=== PATIENT | male | born 1960 | race Caucasian/White ===

== ENCOUNTER 2016-07-31 21:23 | Emergency (ER) | payer SELFPAY ==
[2016-07-31 21:24] VITALS: BMI 25.3
[2016-07-31 21:39] VITALS: TEMP 98.1
--- NOTE | 2016-07-31 21:55 | C.PDOC ---
History Of Present Illness 55 y/o male presents to the ED with complains of facial injury. Pt admits to heavy alcohol intake tonight. Pt denies LOC, vomiting, headache, chest pain, SOB or any other complaints. Chief Complaint (Nursing): Trauma History Per: Patient Onset/Duration Of Symptoms: Hrs Current Symptoms Are (Timing): Still Present Suicide/Self Injury Attempted (Context): None Modifying Factor(s): Alcohol Severity: Mild Involuntary Hold By: None Recent travel outside of the [place]: No Past Medical History Reviewed: Historical Data, Nursing Documentation, Vital Signs Vital Signs: Last Vital Signs Temp 98.1 F 07/31/16 21:32 Pulse 91 H 08/01/16 00:30 Resp 18 08/01/16 00:30 BP 155/86 H 08/01/16 00:30 Pulse Ox 95 08/01/16 00:30 - Medical History PMH: Arthritis (gouty arthritis), Depression, HTN - [facility] Procedures ALCOHOL DETOXIFICATION (06/12/14) Family History: States: Unknown Family Hx - Social History Hx Tobacco Use: No Hx Alcohol Use: Yes Hx Substance Use: No - Immunization History Hx Tetanus Toxoid Vaccination: No Hx Influenza Vaccination: No Hx Pneumococcal Vaccination: No Review Of Systems Cardiovascular: Negative for: Chest Pain Respiratory: Negative for: Shortness of Breath Gastrointestinal: Negative for: Vomiting Musculoskeletal: Positive for: Other (facial injury) Neurological: Negative for: Headache Physical Exam - Physical Exam Appears: Non-toxic, No Acute Distress Skin: Warm, Dry, No Rash Head: Normacephalic, Swelling (slight swelling to right frontal/cheek area with mild tenderness), No Laceration, Other (no deformity) Nose: Normal Neck: Normal ROM, Supple Chest: Symmetrical Cardiovascular: Rhythm Regular, No Murmur Respiratory: Normal Breath Sounds, No Rales, No Rhonchi, No Wheezing Gastrointestinal/Abdominal: Soft, No Tenderness Extremity: Normal ROM Extremity: Bilateral: Atraumatic Neurological/Psych: Oriented x3 ED Course And Treatment - Laboratory Results Result Diagrams: 08/01/16 00:34 08/01/16 00:34 O2 Sat by Pulse Oximetry: 96 (on room air) Pulse Ox Interpretation: Normal - CT Scan/US CT head Other Rad Studies (CT/US): Read By Radiologist, Radiology Report Reviewed CT/US Interpretation: EXAM: CT Head Without Intravenous Contrast. CLINICAL HISTORY: 55 years old, male; Injury or trauma; Fall; Initial encounter; Abrasion; Eye and head, generalized;. Right. TECHNIQUE: Axial computed tomography images of the head/brain without intravenous contrast. This CT exam. was performed using one or more of the following dose reduction techniques: automated exposure. control, adjustment of the mA and/or kV according to patient size, and/or use of iterative. reconstruction technique. COMPARISON: CT - HEAD W/O CONTRAST 09/18/2014 10:40:14 PM. FINDINGS: Limitations: Motion artifact - mild. Brain: Mlaq-ci-wvyrqeil atrophy. No definite intracranial hemorrhage. No mass. No definite. edema. Ventricles: No hydrocephalus. Bones/ joints: No calvarial fracture. Craniotomy. Soft tissues: RIGHT frontal soft tissue swelling. Dermal calcifications. Vasculature: Mild atherosclerotic disease of intracranial arteries. Mastoid air cells: No mastoid effusion. IMPRESSION: 1. No definite intracranial hemorrhage. 2. See facial bone CT report for additional details. 3. Incidental/non-acute findings are described above. Thank you for allowing us to participate in the care of your patient. Dictated and Authenticated by: Riki Bishop MD. 07/31/2016 11:41 PM Eastern Time ([place] & [place]) CT orbits Other Rad Studies (CT/US): Read By Radiologist, Radiology Report Reviewed CT/US Interpretation: EXAM: CT Orbits Without Intravenous Contrast. CLINICAL HISTORY: 55 years old, male; Injury or trauma; Fall; Initial encounter; Abrasion; Orbit/periorbital; Right. TECHNIQUE: Axial computed tomography images of the orbits without intravenous contrast. This CT exam was. performed using one or more of the following dose reduction techniques: automated exposure. control, adjustment of the mA and/or kV according to patient size, and/or use of iterative. reconstruction technique. Coronal and sagittal reformatted images were created and reviewed. COMPARISON: CT - HEAD W/O CONTRAST 09/18/2014 10:40:14 PM. FINDINGS: Orbits: Unremarkable as visualized. Sinuses: Moderate mucosal thickening of LEFT ethmoid sinus. Mild mucosal thickening of frontal,. LEFT maxillary, RIGHT ethmoid sinuses. Scattered minimal mucosal thickening of remaining. sinuses. No air-fluid levels. Bones/ joints: Degenerative changes of cervical spine. Chronic deformity nasal bones. No acute. fracture. Soft tissues: Dermal calcifications. RIGHT frontal soft tissue swelling. Dental: Dental david. IMPRESSION: 1. No fracture. 2. Incidental/non-acute findings are described above. Thank you for allowing us to participate in the care of your patient. Dictated and Authenticated by: Riki Bishop MD. 07/31/2016 11:51 PM Eastern Time ([place] & [place]) Disposition - Disposition Referrals: [facility] [Outside] Disposition: HOME/ ROUTINE Disposition Time: 06:17 Condition: STABLE Instructions: Alcohol Intoxication (GEN) - POA Present On Arrival: None - Clinical Impression Clinical Impression: Alcohol intoxication - Scribe Statement The provider has reviewed the documentation as recorded by the Brant Rushing Provider Attestation: All medical record entries made by the Roseibgunner were at my direction and personally dictated by me. I have reviewed the chart and agree that the record accurately reflects my personal performance of the history, physical exam, medical decision making, and the department course for this patient. I have also personally directed, reviewed, and agree with the discharge instructions and disposition.
--- NOTE | 2016-07-31 23:41 | CT ---
EXAM: CT Head Without Intravenous Contrast. CLINICAL HISTORY: 55 years old, male; Injury or trauma; Fall; Initial encounter; Abrasion; Eye and head, generalized; Right TECHNIQUE: Axial computed tomography images of the head/brain without intravenous contrast. This CT exam was performed using one or more of the following dose reduction techniques: automated exposure control, adjustment of the mA and/or kV according to patient size, and/or use of iterative reconstruction technique. COMPARISON: CT - HEAD W/O CONTRAST 09/18/2014 10:40:14 PM FINDINGS: Limitations: Motion artifact - mild. Brain: Nkiy-bn-fbcwbmyr atrophy. No definite intracranial hemorrhage. No mass. No definite edema. Ventricles: No hydrocephalus. Bones/joints: No calvarial fracture. Craniotomy. Soft tissues: RIGHT frontal soft tissue swelling. Dermal calcifications. Vasculature: Mild atherosclerotic disease of intracranial arteries. Mastoid air cells: No mastoid effusion. IMPRESSION: 1. No definite intracranial hemorrhage. 2. See facial bone CT report for additional details. 3. Incidental/non-acute findings are described above.
--- NOTE | 2016-07-31 23:52 | CT ---
EXAM: CT Orbits Without Intravenous Contrast. CLINICAL HISTORY: 55 years old, male; Injury or trauma; Fall; Initial encounter; Abrasion; Orbit/periorbital; Right TECHNIQUE: Axial computed tomography images of the orbits without intravenous contrast. This CT exam was performed using one or more of the following dose reduction techniques: automated exposure control, adjustment of the mA and/or kV according to patient size, and/or use of iterative reconstruction technique. Coronal and sagittal reformatted images were created and reviewed. COMPARISON: CT - HEAD W/O CONTRAST 09/18/2014 10:40:14 PM FINDINGS: Orbits: Unremarkable as visualized. Sinuses: Moderate mucosal thickening of LEFT ethmoid sinus. Mild mucosal thickening of frontal, LEFT maxillary, RIGHT ethmoid sinuses. Scattered minimal mucosal thickening of remaining sinuses. No air-fluid levels. Bones/joints: Degenerative changes of cervical spine. Chronic deformity nasal bones. No acute fracture. Soft tissues: Dermal calcifications. RIGHT frontal soft tissue swelling. Dental: Dental david. IMPRESSION: 1. No fracture. 2. Incidental/non-acute findings are described above.
[2016-08-01 00:38] LABS: BASO # 0.1 K/uL (0.0-0.2); BASO % 1.1 % (0.0-2.0); EOS # 0.2 K/uL (0.0-0.7); HEMATOCRIT 40.7 % (35.0-51.0); LYMPH # 1.7 K/uL (1.0-4.3); MEAN CELL VOLUME 92.5 fL (80.0-94.0); MEAN CORPUSCULAR HEMOGLOBIN 30.5 pg (27.0-31.0); MEAN CORPUSCULAR HGB CONC 32.9 g/dL (33.0-37.0); MEAN PLATELET VOLUME 7.6 fL (7.2-11.7); MONO # 0.6 K/uL (0.0-0.8); NRBC % 0.1 % (0.0-2.0); RED CELL DISTRIBUTION WIDTH 12.4 % (11.5-14.5); WHITE BLOOD COUNT 5.8 K/uL (4.8-10.8)
[2016-08-01 00:44] LABS: CHLORIDE 103 mmol/L (98-107); SODIUM 141 mmol/L (132-148)
[2016-08-01 00:45] LABS: POTASSIUM 3.9 mmol/L (3.6-5.2)
[2016-08-01 00:47] LABS: ALB/GLOB RATIO 1.2 (1.0-2.1); ALKALINE PHOSPHATASE 79 U/L (38-126); ALT/SGPT 41 U/L (21-72); AST/SGOT 33 U/L (17-59); BILIRUBIN,TOTAL 0.4 mg/dL (0.2-1.3); BLOOD UREA NITROGEN 8 mg/dL (9-20); CALCIUM 7.9 mg/dl (8.6-10.4); CARBON DIOXIDE 21 mmol/L (22-30); GFR AFRICAN-AMERICAN > 60; GLUCOSE,RANDOM 93 mg/dL (75-110); TOTAL PROTEIN 6.9 g/dL (6.3-8.3)
[2016-08-01 01:07] LABS: ALCOHOL SERUM 288 mg/dl (0-10)
[2016-08-01 06:20] VITALS: BP 103/71; PULSE 64; RESP 20; O2SAT 100
== END 2016-08-01 06:20 | disposition home or self-care (01) ==
LOC: C.ER 21:23
DX: F10.120 Alcohol abuse with intoxication, uncomplicated (principal); Y90.8 Blood alcohol level of 240 mg/100 ml or more; S00.81XA Abrasion of other part of head, initial encounter; W19.XXXA Unspecified fall, initial encounter; Y92.9 Unspecified place or not applicable
CPT/HCPCS: 70450; 70480; 80053; 85025; 99285; G0480

== ENCOUNTER 2016-09-28 22:06 | Emergency (ER) | payer SELFPAY ==
[2016-09-28 22:08] VITALS: BMI 25.3
[2016-09-28] MEDS ORDERED: Bacitracin 500 Units/gm Oint Foilpak UD TOP ONE (22:41)
[2016-09-28] MEDS ORDERED: Bacitracin 500 Units/gm Oint Foilpak UD ONE (22:46)
--- NOTE | 2016-09-28 23:27 | C.PDOC ---
History Of Present Illness Pt was BIBEMS due to public alcohol intoxication. Time Seen by Provider: 09/28/16 22:33 Chief Complaint (Nursing): Substance Abuse History Per: Patient, EMS History/Exam Limitations: intoxication Onset/Duration Of Symptoms: Unknown Current Symptoms Are (Timing): Still Present Suicide/Self Injury Attempted (Context): None Modifying Factor(s): Alcohol Severity: Severe Associated Symptoms: denies: Suicidal Thoughts, Suicidal Plan Additional History Per: Prior Records Past Medical History Reviewed: Historical Data, Nursing Documentation, Vital Signs Vital Signs: Last Vital Signs Temp 97.4 F L 09/28/16 22:17 Pulse 91 H 09/28/16 22:17 Resp 20 09/28/16 22:17 BP 155/55 H 09/28/16 22:17 Pulse Ox 92 L 09/28/16 23:27 - Medical History PMH: Arthritis (gouty arthritis), Depression, HTN Other PMH: Alcohol abuse - [facility] Procedures ALCOHOL DETOXIFICATION (06/12/14) Family History: States: Unknown Family Hx - Social History Hx Tobacco Use: No Hx Alcohol Use: Yes Hx Substance Use: No - Immunization History Hx Tetanus Toxoid Vaccination: No Hx Influenza Vaccination: No Hx Pneumococcal Vaccination: No Review Of Systems Review Of Systems: ROS cannot be obtained secondary to pt's inabilty to answer questions. Physical Exam - Physical Exam Appears: Non-toxic, No Acute Distress, Other (AOB, intoxicated) Skin: Normal Color, Warm, Dry Head: Abrasion (next to right eyebrow, unknow when sustained) Eye(s): bilateral: PERRL, EOMI Neck: Normal ROM, No Midline Cervical Tenderness, No Step Off Deformity, Supple Chest: Symmetrical, No Deformity Cardiovascular: Rhythm Regular Respiratory: Normal Breath Sounds, No Accessory Muscle Use Gastrointestinal/Abdominal: Soft, No Tenderness Extremity: Normal ROM, No Deformity Neurological/Psych: Eyes Open With Command, Slow To Respond With Command, Other (Moving all extremities) Gait: Unable To Assess ED Course And Treatment O2 Sat by Pulse Oximetry: 92 Disposition - Disposition Disposition Time: 23:48 Condition: STABLE - Clinical Impression Clinical Impression: Alcohol abuse, Head injury Physician Patient Turnover Patient Signed Over To: Estevan Pino Handoff Comments: to f/up CT scans and reassess pt once sober.
[2016-09-29 03:31] VITALS: O2SAT 97
[2016-09-29 06:16] VITALS: BP 140/71; PULSE 87; RESP 16; TEMP 97.6
--- NOTE | 2016-09-29 10:30 | CT ---
PROCEDURE: CT Cervical Spine without contrast HISTORY: Head injury COMPARISON: 06/03/2014. TECHNIQUE: Axial computed tomography images were obtained of the cervical spine without the use of intravenous contrast. Coronal and sagittal reformatted images were created and reviewed. Radiation dose: Total exam DLP = 549.33 mGy-cm. This CT exam was performed using one or more of the following dose reduction techniques: Automated exposure control, adjustment of the mA and/or kV according to patient size, and/or use of iterative reconstruction technique. FINDINGS: VERTEBRAE: No fracture. Normal alignment. No destructive bony lesion. DISCS/SPINAL CANAL/NEURAL FORAMINA: Stable cervical spondylosis primarily affecting C4-5, C5-6 and C6-7. Similar findings identified on the prior study. Calcified annular bulge at C6-7 without evidence of canal stenosis. Disc space narrowing primarily affecting C5-6 and C6-7. PARASPINAL SOFT TISSUES: Unremarkable. OTHER FINDINGS: None. IMPRESSION: No acute findings related to/accounting for the clinical presentation. No significant interval change compared to the prior examination(s). Concordant results (preliminary interpretation) provided by [facility]. Procedure Completed: 23:46. Preliminary ([facility]) Report: Dictated and Authenticated: 00:13. Final Interpretation: 10:27. September 29, 2016.
--- NOTE | 2016-09-29 10:48 | CT ---
PROCEDURE: CT HEAD WITHOUT CONTRAST. HISTORY: s/p head injury COMPARISON: 07/31/2016 TECHNIQUE: Axial computed tomography images were obtained through the head/brain without intravenous contrast. Radiation dose: Total exam DLP = 934.03 mGy-cm. This CT exam was performed using one or more of the following dose reduction techniques: Automated exposure control, adjustment of the mA and/or kV according to patient size, and/or use of iterative reconstruction technique. FINDINGS: HEMORRHAGE: No intracranial hemorrhage. BRAIN: No mass effect or edema. No atrophy or chronic microvascular ischemic changes. VENTRICLES: Unremarkable. No hydrocephalus. CALVARIUM: Stable craniotomy findings. PARANASAL SINUSES: Chronic ethmoid air cell disease. [place] MASTOID AIR CELLS: Unremarkable as visualized. No inflammatory changes. OTHER FINDINGS: Old healed nasal bone fractures. IMPRESSION: No acute intracranial abnormalities. No significant findings to account for the clinical presentation. No significant interval change compared to the prior examination(s). Concordant results (preliminary interpretation) provided by [facility]. Procedure Completed: 23:44 Preliminary ([facility]) Report: Dictated and Authenticated: 00:04 Final Interpretation: 10:46. September 29, 2016.
== END 2016-09-29 06:24 | disposition home or self-care (01) ==
LOC: C.ER 22:06
DX: S09.90XA Unspecified injury of head, initial encounter (principal); W01.0XXA Fall on same level from slipping, tripping and stumbling without subsequent striking against object, initial encounter; Y93.89 Activity, other specified; Y92.410 Unspecified street and highway as the place of occurrence of the external cause; F10.10 Alcohol abuse, uncomplicated; Y90.9 Presence of alcohol in blood, level not specified

== ENCOUNTER 2018-04-19 00:10 | Emergency (ER) | payer MEDICAID ==
[2018-04-19 00:11] VITALS: BMI 25.3
[2018-04-19 00:22] VITALS: BP 125/78; RESP 16; TEMP 97.2
[2018-04-19] MEDS ORDERED: Morphine 4 MG/ML VIAL IV ONE (00:30)
--- NOTE | 2018-04-19 00:43 | C.PDOC ---
History Of Present Illness 57 year old male is brought to the ED by ambulance for evaluation of public intoxication [place]. Patient is complaining of right arm pain, after sustaining a fracture around 5 months ago. Patient denies suicidal/homicidal ideation at this time. Time Seen by Provider: 04/19/18 00:24 Chief Complaint (Nursing): Substance Abuse History Per: Patient, EMS History/Exam Limitations: intoxication Onset/Duration Of Symptoms: Unknown Current Symptoms Are (Timing): Gone Suicide/Self Injury Attempted (Context): None Modifying Factor(s): Alcohol Associated Symptoms: denies: Suicidal Thoughts, Suicidal Plan Involuntary Hold By: None Recent travel outside of the [place]: No Additional History Per: Patient, EMS Past Medical History Reviewed: Historical Data, Nursing Documentation, Vital Signs Vital Signs: Last Vital Signs Temp 97.2 F L 04/19/18 00:20 Pulse 80 04/19/18 00:20 Resp 16 04/19/18 00:20 BP 125/78 04/19/18 00:20 Pulse Ox 98 04/19/18 00:20 - Medical History PMH: Arthritis (gouty arthritis), Depression, HTN Surgical History: No Surg Hx - [facility] Procedures ALCOHOL DETOXIFICATION (06/12/14) Family History: States: Unknown Family Hx - Social History Hx Tobacco Use: No Hx Alcohol Use: Yes Hx Substance Use: No - Immunization History Hx Tetanus Toxoid Vaccination: No Hx Influenza Vaccination: No Hx Pneumococcal Vaccination: No Review Of Systems Musculoskeletal: Positive for: Arm Pain (right) Psych: Positive for: Other (EtOH intoxication ). Negative for: Suicidal ideation Physical Exam - Physical Exam Appears: Non-toxic, No Acute Distress, Other (visibly intoxicated ) Skin: Normal Color, Warm, Dry Head: Atraumatic, Normacephalic Eye(s): bilateral: Normal Inspection Oral Mucosa: Moist, Other (alcohol on breath ) Neck: Supple Chest: Symmetrical, No Deformity Cardiovascular: Rhythm Regular Respiratory: No Accessory Muscle Use Gastrointestinal/Abdominal: Soft, No Tenderness, No Guarding, No Rebound Extremity: Other (removable splint on right wrist ) Neurological/Psych: No Normal Speech (slurred), Other (arousable to touch and verbal stimuli ) ED Course And Treatment O2 Sat by Pulse Oximetry: 98 (on RA) Pulse Ox Interpretation: Normal Medical Decision Making Medical Decision Making: Impression: 57 year old male with alcohol intoxication, right arm pain Patient progressively returned to baseline throughout ED course. At time of discharge patient is awake and alert, and able to ambulate without difficulty. Disposition - Disposition Disposition: HOME/ ROUTINE Disposition Time: 06:00 Condition: STABLE Additional Instructions: JAZMIN MARS, thank you for letting us take care of you today. Your provider was Zohreh Morales MD and you were treated for SUBSTANCE ABUSE. The emergency medical care you received today was directed at your acute symptoms. If you were prescribed any medication, please fill it and take as directed. It may take several days for your symptoms to resolve. Return to the Emergency Department if your symptoms worsen, do not improve, or if you have any other problems. Please contact your doctor or call one of the physicians/clinics you have been referred to that are listed on the Patient Visit Information form that is included in your discharge packet. Bring any paperwork you were given at discharge with you along with any medications you are taking to your follow up visit. Our treatment cannot replace ongoing medical care by a primary care provider outside of the emergency department. Thank you for allowing the [facility] team to be part of your care today. If you had an X-Ray or CT scan: A Radiologist will review the ED reading if any change in treatment is needed we will contact you. If you had a blood, urine, or wound culture: It will take several days for the results, if any change in treatment is needed we will contact you. If you had an STI test: It will take 48 hours for the results. Please call after 1 week if you have not heard back. Instructions: Alcohol Abuse and Alcoholism (DC) Forms: Defend Your Head ([place]) - Clinical Impression Clinical Impression: Alcohol intoxication - Scribe Statement The provider has reviewed the documentation as recorded by the Scribe (Erika Kwok) Provider Attestation: All medical record entries made by the Scribe were at my direction and personally dictated by me. I have reviewed the chart and agree that the record accurately reflects my personal performance of the history, physical exam, medical decision making, and the department course for this patient. I have also personally directed, reviewed, and agree with the discharge instructions and disposition.
[2018-04-19 05:57] VITALS: PULSE 86
[2018-04-19 06:05] VITALS: O2SAT 98
== END 2018-04-19 05:30 | disposition home or self-care (01) ==
LOC: C.ER 00:10
DX: F10.129 Alcohol abuse with intoxication, unspecified (principal)